=== PATIENT | female | born 1995 | race Caucasian/White ===

== ENCOUNTER → 2022-04-21 | Day surgery (SDC) | payer BC ==
[~2022-04-21] MED LIST: CAMILA0.35 MG PO; KELNOR 1-35 281 EACH PO; PERCOCET 5-3251 EACH PO; ZANTAC150 MG PO
[2022-04-21 06:35] LABS: HEMOGLOBIN 13.2 gm/dl (12.3-15.3); RED BLOOD COUNT 4.41 M/UL (4.00-5.10); WHITE BLOOD COUNT 7.9 K/UL (4.5-11.0)
== END | disposition home or self-care (01) ==
LOC: OR 05:38
PROVIDERS: Obstetrics & Gynecology
DX: N83.202 Unspecified ovarian cyst, left side (principal)
CPT/HCPCS: 81001; 84702; 85025; J1100; J1885; J2001; J2250; J2405; J2704; J2710; J2795; J3010; J7120